=== PATIENT | female | born 1980 | race African-American/Black ===

== ENCOUNTER 2016-08-31 07:30 | Inpatient (IN) ==
[2016-08-31 14:34] LABS: Basophils % 0.4 % (0.0-0.8); Eosinophils # 0.2 10*3/uL (0.0-0.87); Eosinophils % 1.9 % (0.00-10.9); Hemoglobin 7.4 GM/DL (12.0-16.0); Immature Granulocytes % 0.4 %; Immature Granulocytes Absolute 0.04 #; Lymphocytes # 2.8 10*3/uL (1.4-4.0); Lymphocytes % 30.4 % (21.3-54.2); Mean Corpuscular HGB Conc 33.6 GM/DL (32-36); Mean Corpuscular Hemoglobin 24 PG (27-34); Mean Corpuscular Volume 70.5 FL (87-102); Mean Platelet Volume 10.6 FL (9.6-12.0); Monocytes # 0.6 10*3/uL (0.11-0.8); Monocytes % 6.8 % (1.7-12.7); NRBC # 0.03 10*3/uL; Neutrophils # 5.5 10*3/uL (1.4-7.4); Neutrophils % 60.1 % (38.7-73.9); Platelet Count 533 T/CUMM (130-400); Red Blood Count 3.12 MC/CUMM (3.8-5.5); Red Cell Distribution Width 14.5 % (9.3-17.3); White Blood Count 9.1 T/CUMM (4-12)
[2016-08-31 14:59] LABS: Apearance,Urine Slightly Hazy (Clear); Bacteria,Urine Many /HPF (Few); Bilirubin,Urine Negative (Negative); Blood, Urine Negative (Negative); Glucose,Urine (UA) Negative (Negative); Ketones,Urine Negative (Negative); Mucus,Urine Occasional /LPF (Occasional); Nitrite,Urine Negative (Negative); Protein,Urine Negative; RBC,Urine 2 /HPF (0-4); Squamous Epithelial Cell,Urine Occasional /HPF (0-10); Urine Color Yellow (Yellow); Urine Specific Gravity 1.011 (1.001-1.035); WBC,Urine 10 /HPF (0-6)
--- NOTE | 2016-08-31 15:03 | EKG Report ---
Stationary ECG Study [facility] Test Date: 08/31/2016 3:02:49 PM Pat Name: OPAL HATCH Department: Room: Gender: F Marketing Account Manager: ALFONSO 09[birth year]-16 : 1980 Requested by: Lucio Vasquez Order Number: [id number] Reading MD: MARGAUX DIAL Intervals [place] Rate: 67 P: 78 HI: 163 QRS: 82 QRSD: 84 T: 60 QT: 374 QTc: 390 Interpretive Statements SINUS RHYTHM Electronically Signed On 09-02-16 09:13:52 CASINO SLOT SUPERVISOR by MARGAUX DIAL [email or web address]
[2016-08-31 15:09] LABS: Albumin 4.3 G/DL (3.4-5.0); Bilirubin,Total 1.1 MG/DL (0.2-1.0); Calcium 8.9 MG/DL (8.5-10.1); Osmolality,Calculated 282.8 MOS/KG (273-304); Potassium 3.8 MMOL/L (3.5-5.1); Total Protein 7.7 G/DL (6.4-8.3)
--- NOTE | 2016-08-31 15:14 | XRay Report ---
XR chest 2V Date: 08/31/2016 2:16 PM History: Respiratory preoperative evaluation Comparison: 09/20/2014 Technique: PA and lateral chest Findings: The heart is normal in size. The lungs are clear with unremarkable mediastinum. No acute osseous findings. Impression: No acute cardiopulmonary pathology identified. PROCEDURE INTERPRETED AT [facility] DEPARTMENT OF RADIOLOGY Final Report Signed by: Dr. Adriana Holden
[2016-09-02] MEDS ORDERED: VANCOMYCIN INJ 1,000 MG in SODIUM CHLORIDE 0.9% 250 ML IV ONE (06:00)
[2016-09-02] MEDS: LACTATED RINGERS 1,000 ML IV SCH ×2 (06:36→09:00)
[2016-09-02] MEDS ORDERED: SODIUM CHLORIDE 0.9% 100 ML IV ONE (06:39)
[2016-09-02] MEDS ORDERED: ceFAZolin 1,000 MG VIAL ONE (06:39)
[2016-09-02] MEDS ORDERED: VANCOMYCIN 1,000 MG VIAL ONE (06:39)
[2016-09-02 06:53] LABS: Hematocrit 31.4 VOL% (35.7-47.0); Hemoglobin 10.3 GM/DL (12.0-16.0)
[2016-09-02] MEDS ORDERED: ROCURONIUM 100 MG/10 ML VIAL IV ONE (07:10)
[2016-09-02] MEDS ORDERED: PROPOFOL 200 MG/20 ML VIAL IV ONE (07:10)
[2016-09-02] MEDS ORDERED: ONDANSETRON 4 MG/2 ML VIAL ONE (07:10)
[2016-09-02] MEDS ORDERED: LIDOCAINE 2% 5 ML VIAL ONE (07:10)
[2016-09-02] MEDS ORDERED: BISACODYL 10 MG SUPP RECTAL PRN (07:12)
[2016-09-02] MEDS ORDERED: LACTULOSE 20 GM/30 ML UDCUP PO PRN (07:12)
[2016-09-02] MEDS ORDERED: TEMAZEPAM 7.5 MG CAPSULE PO PRN (07:12)
[2016-09-02] MEDS ORDERED: HYDROmorphone 2 MG/1 ML VIAL IV PRN (07:12)
[2016-09-02] MEDS ORDERED: diphenhydrAMINE CAP 25 MG CAPSULE PO PRN (07:12)
[2016-09-02] MEDS ORDERED: MAGNESIUM HYDROXIDE SUSP 30 ML UDCUP PO PRN (07:12)
[2016-09-02] MEDS ORDERED: PROMETHAZINE 25 MG/1 ML VIAL IM PRN (07:12)
--- NOTE | 2016-09-02 07:12 | History and Physical Update ---
History and Physical Update - History and Physical H&P was reviewed, the patient examined and there: are no changes in the patients condition since last H&P was completed.
[2016-09-02] MEDS ORDERED: ROPIVACAINE 0.5% 30 ML VIAL ONE (08:56)
[2016-09-02] MEDS ORDERED: DEFERASIROX PO SCH (09:00)
--- NOTE | 2016-09-02 09:10 | XRay Report ---
XR hip OR LT Indication: Left total hip. Left hip one view: Left MATT is now present and in anatomic alignment. No periprosthetic fracture shown. Surgical drains overlie the operative site. Impression: Left MATT. Normal alignment. PROCEDURE INTERPRETED AT [facility] DEPARTMENT OF RADIOLOGY Final Report Signed by: Rubin Bhagat M.D.
[2016-09-02 09:16] LABS: Apearance,Urine CLEAR (Clear); Bacteria,Urine Few /HPF (Few); Bilirubin,Urine Negative (Negative); Blood, Urine Negative (Negative); Glucose,Urine (UA) Negative (Negative); Ketones,Urine Negative (Negative); Mucus,Urine Occasional /LPF (Occasional); Nitrite,Urine Negative (Negative); Protein,Urine Negative; Squamous Epithelial Cell,Urine Occasional /HPF (0-10); Urine Color Yellow (Yellow); Urine Specific Gravity 1.011 (1.001-1.035); WBC,Urine 1 /HPF (0-6)
--- NOTE | 2016-09-02 09:26 | Anesthesia ---
Anesthesia Post OP - Post Ansesthetic Evaluation Patient seen in post op: Yes Resp: within normal limits CV: within normal limits Mental: within normal limits Temp: within normal limits Ccij-To-Dnjtwpern: within normal limits Nausea and Vomiting: within normal limits Pain: within normal limits
[2016-09-02] MEDS ORDERED: ACETAMINOPHEN 1,000 MG/100 ML VIAL IV ONE (09:29)
[2016-09-02] MEDS ORDERED: fentaNYL 100 MCG/2 ML VIAL ONE (09:29)
[2016-09-02] MEDS ORDERED: MIDAZOLAM 2 MG/2 ML VIAL ONE (09:29)
[2016-09-02] MEDS ORDERED: SEVOFLURANE 1 UNIT/15 MINUTE INH ONE (09:29)
[2016-09-02] MEDS ORDERED: MORPHINE 10 MG/10 ML VIAL ONE (09:29)
[2016-09-02] MEDS ORDERED: LACTATED RINGERS 1,000 ML IV ONE (09:29)
[2016-09-02] MEDS: ONDANSETRON 4 MG/2 ML VIAL IV PRN ×2 (12:19→16:21)
--- NOTE | 2016-09-02 15:17 | Operative Note ---
DATE: 09/02/2016 PREOPERATIVE DIAGNOSES: 1. OSTEOARTHRITIS, LEFT HIP. 2. SICKLE CELL ANEMIA. POSTOPERATIVE DIAGNOSIS: SAME. OPERATIVE PROCEDURE: Left total hip (SROM). SURGEON: Lucio Vasquez Jr., MD HOMICIDE SQUAD SERGEANT: Dr. Ariza. ANESTHESIA: Spinal converted to general. INDICATIONS: A 36-year-old black female with history of sickle cell. She has developed severe aceta bulum protrusio bilateral with significant degenerative changes. She presents today for elective tot al hip. We discussed previously the associated risks, benefits, and alternatives, and she is comfort able with her decision. OPERATIVE PROCEDURE: The patient was taken to the operating room and under general anesthetic, posi tioned in the right lateral decubitus position. The left hip and lower extremity prepped and draped in the usual sterile manner. She received Vancomycin and Ancef preoperatively. A curvilinear incisio n was made over the posterolateral aspect of the left hip. Sharp dissection carried down through the skin and subcutaneous tissue. The IT band was split and the gluteus in line with its fiber. The hi p was internally rotated and the short rotators and capsule were reflected off of the back of the pr oximal femur. The acetabulum was exposed, capsule preserved for later repair. The head was dislocate d and resected. The acetabulum was noted to have significant protrusio so we carefully reamed up to a 47 and a 48 cup press fit in place. The floor of the acetabulum was cleaned of any soft tissue gregorio ris and milling of the femoral head and neck region was used to pack bone graft behind the cup. The cup was inserted and secured with two screws and a 10-degree all polyethylene liner placed. The SROM component was then used for the proximal femur after exposure, ultimately selecting a size 9 with a 14B small collar. The femoral component was a 14 x 9 30 standard neck. The trials were removed. T he permanent implants placed and again a 0 head was trialed and selected. This did add a little bit of length to the limb, but this had been discussed preoperatively. She had shortened with the prot rusio. The hip was stable. The wound was irrigated. Intraoperative film confirmed satisfactory po sition. All wounds were irrigated and then closed in a standard fashion over two 1/8-inch Hemovac d rains. The capsule and IT band layers were closed with #1 Vicryl, the subcutaneous layer with 2-0 V icryl, and josh for skin. Sterile dressing applied. She was rolled supine. Abduction pillow pl aced and taken to the recovery room in stable condition.
[2016-09-02] MEDS: DOCUSATE SODIUM 100 MG CAPSULE PO SCH ×2 (16:18→21:46)
[2016-09-02] MEDS: HYDROmorphone PCA 30 MG/30 ML SYRINGE IV SCH (17:14)
--- NOTE | 2016-09-02 17:31 | Orthopedic Progress Note ---
Orthopedics - Subjective Interval history: Comfortable neurovascular intact discussed up in a.m. Exam - Constitutional Vitals: Period Temp Pulse Resp BP Sys/Hannah Pulse Ox Last 24 Hr 97.2 F-99.0 F 57-85 16-19 74-107/37-65 98-100 Results - Labs CBC & BMP: 09/02/16 06:44 08/31/16 14:24
[2016-09-02] MEDS: FONDAPARINUX 2.5 MG/0.5 ML SYRINGE SUBCUT SCH (18:21)
[2016-09-03 05:25] LABS: Basophils % 0.2 % (0.0-0.8); Eosinophils # 0.1 10*3/uL (0.0-0.87); Eosinophils % 0.5 % (0.00-10.9); Hematocrit 23.8 VOL% (35.7-47.0); Immature Granulocytes % 0.5 %; Immature Granulocytes Absolute 0.06 #; Lymphocytes # 1.3 10*3/uL (1.4-4.0); Lymphocytes % 11.5 % (21.3-54.2); Mean Corpuscular HGB Conc 33.6 GM/DL (32-36); Mean Corpuscular Hemoglobin 25 PG (27-34); Mean Platelet Volume 11.4 FL (9.6-12.0); Monocytes # 1.3 10*3/uL (0.11-0.8); Monocytes % 11.5 % (1.7-12.7); NRBC # 0.03 10*3/uL; Neutrophils # 8.7 10*3/uL (1.4-7.4); Neutrophils % 75.8 % (38.7-73.9); Platelet Count 387 T/CUMM (130-400); Red Blood Count 3.26 MC/CUMM (3.8-5.5); Red Cell Distribution Width 16.9 % (9.3-17.3); White Blood Count 11.4 T/CUMM (4-12)
[2016-09-03 05:57] LABS: Calcium 8.3 MG/DL (8.5-10.1); Osmolality,Calculated 275.4 MOS/KG (273-304); Potassium 3.9 MMOL/L (3.5-5.1)
--- NOTE | 2016-09-03 07:57 | Hematology Consult ---
Assessment and Plan (1) Sickle cell anemia Status: Acute Current Visit: Yes (2) UTI (urinary tract infection) Status: Acute Current Visit: Yes (3) Fever Status: Acute Current Visit: Yes (4) Osteonecrosis Status: Acute Current Visit: Yes (5) Hip joint replacement status Status: Acute Current Visit: Yes History of Present Illness - Consult Narrative History of present illness: Ms. Menjivar is a 36 year old female with sickle cell anemia who is now status post total left hip replacement due to osteonecrosis. She tolerated her surgery well yesterday. Her urine cultures are growing Escherichia coli and she did spike a temp this morning above 102 Fahrenheit. She has received 3 doses of cefazolin for perioperative prophylaxis I think it would be mackay to give her 3 days of Cipro. Her hemoglobin this morning is at 8. She is not complaining of any signs or symptoms of a sickle cell crisis so I do not see her needing a transfusion at this time. She'll begin ambulating today per orthopedics instructions. I will follow-up her hemoglobin tomorrow morning. Please call him if there are any questions. CC: Lucio Vasquez Jr., MD - Home Medications and Allergies Home Medications: Home Medications Medication Instructions Recorded Confirmed Type Deferasirox [Jadenu] 540 mg PO DAILY 05/28/16 09/02/16 History HYDROcodone/ACETAMIN 7.5-325 1 tablet PO Q6H PRN 08/31/16 09/02/16 History [[place] 7.5-325] Allergies/Adverse Reactions: Allergies Allergy/AdvReac Type Severity Reaction Status Date / Time No Known Allergies Allergy Verified 08/31/16 14:32 Medical,Surgical,& Family Hx - Medical History Neurology: History of: Migraine (occasionally) No history of: Seizures Respiratory: History of: Respiratory Problems (FLU VAC-NO; PNEU VAC- NO) Gastrointestinal: History of: GI Problems (IRON OVERLOAD) Musculoskeletal: History of: Musculoskeletal Problems (LEFT HIP OA) Hematology: History of: Sickle Cell Disease (NO CRISIS RECENTLY.) Reproductive: History of: Ectopic Other: History of: Miscellaneous Medical Problems (DR SOLIS TO CLEAR FOR SURGERY.) - Surgical History Reproductive Surgeries: Surgical HX of;: Section (X5), Gynecologic Surgery (OOPHORECTOMY) Orthopedic Surgeries: Surgical HX of;: Total Hip Replacement (Lt 08/2016) - Social History Smoking Status: Never smoker Frequency of Alcohol Use: Occasionally Type of Drug Use: None 12 point system: reviewed and no additional remarkable complaints except as stated Exam - Constitutional Vitals: Period Temp Pulse Resp BP Sys/Hannah Pulse Ox Last 24 Hr 97.2 F-102.1 F 57-108 16-19 74-99/37-65 98-100 General appearance: normal weight, no acute distress - Head Head Exam: Present: normocephalic, atraumatic - Eye Eye Exam: Present: EOMI Pupils: Present: PERRL - ENT ENT exam: Present: normal exam, normal oropharynx - Neck Neck exam: Absent: lymphadenopathy, thyromegaly - Respiratory Respiratory exam: Present: CTAB. Absent: wheezes - Cardiovascular Cardiovascular exam: Present: tachycardia. Absent: JVD - GI/Abdominal GI/Abdominal exam: Present: soft. Absent: ascites, distended, mass - Neurological Exam Neurological exam: Present: alert, oriented X3 - Psychiatric Psychiatric exam: Present: normal affect, normal mood Results - Labs CBC & BMP: 09/03/16 04:38 09/03/16 04:38 Lab Results: I have reviewed the past 24 hour labs
[2016-09-03] MEDS: HYDROmorphone PCA 30 MG/30 ML SYRINGE IV SCH (08:17)
[2016-09-03] MEDS: DOCUSATE SODIUM 100 MG CAPSULE PO SCH ×2 (09:30→21:17)
[2016-09-03] MEDS: CIPROFLOXACIN 500 MG TABLET PO SCH ×2 (09:30→21:17)
--- NOTE | 2016-09-03 11:45 | Pathology Report from [facility] ---
ACCESSION # : [id number] PATIENT NAME : Opal Menjivar ORDERING DR : NATE HEAD JR, MD CLINICAL HX: Sickle cell diseasae w/osteoarthritis, LT hip POST-OP DX: Same SPECIMEN INFO: LT hip bone & tissue GROSS DESCRIPTION: Received in formalin labeled "OPAL MENJIVAR" is a femoral head measuring 4.3 x 3/8 x 3.3 cm. The articular surface is focally degenerative with no subchondral eburnation seen. The cut surface is smooth with no softening appreciated. Conservation Of Resources Commissioner sections are submitted in one cassette following decalcification. DIAGNOSIS FOR OPAL MENJIVAR: LEFT HIP BONE AND TISSUE: Trabecular bone, hemorrhagic marrow, and fibrocartilagenous tissue. No evidence of malignancy. SERVICE DATE: 09/02/2016 REPORT DATE: 09/03/2016 PATHOLOGIST: Loli Paul III, M.D. MTDD
[2016-09-03] MEDS: FONDAPARINUX 2.5 MG/0.5 ML SYRINGE SUBCUT SCH (17:53)
[2016-09-03] MEDS: ACETAMINOPHEN 325 MG TABLET PO PRN (18:05)
[2016-09-04 05:44] LABS: Basophils % 0.2 % (0.0-0.8); Eosinophils # 0.1 10*3/uL (0.0-0.87); Eosinophils % 0.4 % (0.00-10.9); Hematocrit 23.5 VOL% (35.7-47.0); Hemoglobin 7.9 GM/DL (12.0-16.0); Immature Granulocytes Absolute 0.19 #; Lymphocytes # 0.9 10*3/uL (1.4-4.0); Lymphocytes % 4.4 % (21.3-54.2); Mean Corpuscular HGB Conc 33.6 GM/DL (32-36); Mean Corpuscular Hemoglobin 24 PG (27-34); Mean Corpuscular Volume 72.5 FL (87-102); Monocytes # 2.2 10*3/uL (0.11-0.8); Monocytes % 11.3 % (1.7-12.7); NRBC # 0.02 10*3/uL; Neutrophils # 16.4 10*3/uL (1.4-7.4); Neutrophils % 82.7 % (38.7-73.9); Platelet Count 352 T/CUMM (130-400); Red Blood Count 3.24 MC/CUMM (3.8-5.5); Red Cell Distribution Width 16.7 % (9.3-17.3); White Blood Count 19.8 T/CUMM (4-12)
[2016-09-04] MEDS: ACETAMINOPHEN 325 MG TABLET PO PRN ×3 (05:44→20:51)
[2016-09-04 06:13] LABS: Lymphocytes 12 % (20-55); Segmented Neutrophils 77 % (50-85); Total Cells Counted 100
[2016-09-04 06:14] LABS: Ovalocytes Few; Platelet Estimate Normal; Target Cells Few
--- NOTE | 2016-09-04 07:18 | Orthopedic Progress Note ---
Orthopedics - Subjective Interval history: Comfortable postop day 2 dressing dry mobilizing with PT to touchdown 25% weightbearing likely home early next week. IV and BUREAU CHIEF Exam - Constitutional Vitals: Period Temp Pulse Resp BP Sys/Hannah Pulse Ox Last 24 Hr 99.7 F-102.9 F 104-120 16-18 91-112/51-66 97-991 Results - Labs CBC & BMP: 09/04/16 05:26 09/03/16 04:38
--- NOTE | 2016-09-04 08:40 | Hematology Progress Note ---
Assessment and Plan (1) Sickle cell anemia Status: Acute Current Visit: Yes (2) UTI (urinary tract infection) Status: Acute Current Visit: Yes (3) Fever Status: Acute Current Visit: Yes (4) Osteonecrosis Status: Acute Current Visit: Yes (5) Hip joint replacement status Status: Acute Current Visit: Yes Hematology Subjective PN Interval history: Mrs. Menjivar continued to have intermittent fever spikes throughout the day. I started her on Cipro yesterday for the Escherichia coli growing in her urine. This will be completed on Wednesday. She feels well with no complaints other than anticipated left hip pain. She has now ambulating on the hip. Her Boyd catheter has been removed. Her hemoglobin today is 7.9 which is at her baseline. I will hold off on a transfusion for now. She has no complaints of sickle cell pain crisis. She remains in good spirits. I will have my partner over the weekend check in on her lab work to see if a transfusion is indicated. I would think if her hemoglobin gets below 7, she would likely benefit from 2 units of packed red cells. Exam - Constitutional Vitals: Period Temp Pulse Resp BP Sys/Hannah Pulse Ox Last 24 Hr 99.0 F-102.9 F 104-120 16-18 100-112/58-66 97-991 Results - Labs CBC & BMP: 09/04/16 05:26 09/03/16 04:38
[2016-09-04] MEDS: CIPROFLOXACIN 500 MG TABLET PO SCH ×2 (09:55→20:50)
[2016-09-04] MEDS: DOCUSATE SODIUM 100 MG CAPSULE PO SCH ×2 (09:55→20:51)
[2016-09-04] MEDS: FONDAPARINUX 2.5 MG/0.5 ML SYRINGE SUBCUT SCH (18:07)
[2016-09-05 06:01] LABS: Basophils % 0.2 % (0.0-0.8); Eosinophils # 0.4 10*3/uL (0.0-0.87); Hematocrit 25.3 VOL% (35.7-47.0); Hemoglobin 8.3 GM/DL (12.0-16.0); Immature Granulocytes % 0.6 %; Immature Granulocytes Absolute 0.12 #; Lymphocytes # 0.9 10*3/uL (1.4-4.0); Lymphocytes % 4.7 % (21.3-54.2); Mean Corpuscular HGB Conc 32.8 GM/DL (32-36); Mean Corpuscular Hemoglobin 24 PG (27-34); Mean Platelet Volume 11.7 FL (9.6-12.0); Monocytes # 2.2 10*3/uL (0.11-0.8); Monocytes % 11.7 % (1.7-12.7); NRBC # 0.02 10*3/uL; Neutrophils # 15.1 10*3/uL (1.4-7.4); Neutrophils % 80.8 % (38.7-73.9); Platelet Count 384 T/CUMM (130-400); Red Blood Count 3.42 MC/CUMM (3.8-5.5); Red Cell Distribution Width 17.1 % (9.3-17.3); White Blood Count 18.7 T/CUMM (4-12)
[2016-09-05] MEDS ORDERED: oxyCODONE IR 5 MG TABLET PO PRN (07:18)
--- NOTE | 2016-09-05 07:20 | Orthopedic Progress Note ---
Assessment and Plan (1) Hip joint replacement status Status: Acute Assessment and plan: Out of bed with PT 25% partial weightbearing with hip precautions DVT prophylaxis Discharge Wednesday Current Visit: Yes Qualifiers: Laterality: left Qualified Code(s): Z96.642 - Presence of left artificial hip joint Orthopedics - Subjective Interval history: Patient still complains of left hip pain. She was able to ambulate in the hallway with therapy yesterday. On exam her dressing is clean and dry, she can wiggle her toes she is sensate foot. Exam - Constitutional Vitals: Period Temp Pulse Resp BP Sys/Hannah Pulse Ox Last 24 Hr 99.0 F-101.8 F 100-127 18-20 99-117/58-73 97-99 Results - Labs CBC & BMP: 09/05/16 05:13 09/03/16 04:38
[2016-09-05 07:59] LABS: Acanthocytes Few; Band Neutrophils 4 % (0-10); Hypochromasia 2+; Lymphocytes 12 % (20-55); Macrocytosis 1+; Platelet Estimate Adequate; Polychromasia Slight; Segmented Neutrophils 80 % (50-85); Target Cells Slight; Total Cells Counted 100
[2016-09-05] MEDS: DOCUSATE SODIUM 100 MG CAPSULE PO SCH ×2 (08:22→20:22)
[2016-09-05] MEDS: CIPROFLOXACIN 500 MG TABLET PO SCH ×2 (08:23→20:22)
[2016-09-05] MEDS: ACETAMINOPHEN 325 MG TABLET PO PRN ×2 (15:26→20:22)
[2016-09-05 16:20] LABS: Apearance,Urine Slightly Hazy (Clear); Bacteria,Urine Occasional /HPF (Few); Bilirubin,Urine Negative (Negative); Blood, Urine Negative (Negative); Glucose,Urine (UA) Negative (Negative); Ketones,Urine Negative (Negative); Mucus,Urine Occasional /LPF (Occasional); Nitrite,Urine Negative (Negative); Protein,Urine Negative; RBC,Urine 1 /HPF (0-4); Squamous Epithelial Cell,Urine Occasional /HPF (0-10); Urine Color Yellow (Yellow); WBC,Urine 2 /HPF (0-6)
--- NOTE | 2016-09-05 17:20 | XRay Report ---
Exam: XR chest 1V portable Indication: Fever Comparison study: August 31, 2016 Findings: The heart, mediastinum and bony structures are stable from prior. Minimal increase in perihilar interstitial opacities when compared to prior which may be related to atelectasis and decreased inspiratory effort. There is no focal consolidation, pneumothorax or pleural effusion identified. Impression: No acute cardiopulmonary process for expiratory chest. PROCEDURE INTERPRETED AT [facility] DEPARTMENT OF RADIOLOGY Final Report Signed by: Brett Sprague
[2016-09-05] MEDS: FONDAPARINUX 2.5 MG/0.5 ML SYRINGE SUBCUT SCH (17:43)
[2016-09-06 05:21] LABS: Basophils # 0.1 10*3/uL (0.0-0.2); Basophils % 0.3 % (0.0-0.8); Eosinophils # 0.7 10*3/uL (0.0-0.87); Eosinophils % 4.5 % (0.00-10.9); Hematocrit 23.5 VOL% (35.7-47.0); Hemoglobin 7.7 GM/DL (12.0-16.0); Immature Granulocytes % 0.6 %; Immature Granulocytes Absolute 0.09 #; Lymphocytes # 1.3 10*3/uL (1.4-4.0); Lymphocytes % 8.5 % (21.3-54.2); Mean Corpuscular HGB Conc 32.8 GM/DL (32-36); Mean Corpuscular Hemoglobin 24 PG (27-34); Mean Platelet Volume 10.8 FL (9.6-12.0); Monocytes # 1.7 10*3/uL (0.11-0.8); Monocytes % 10.8 % (1.7-12.7); Neutrophils # 11.7 10*3/uL (1.4-7.4); Neutrophils % 75.3 % (38.7-73.9); Platelet Count 423 T/CUMM (130-400); Red Blood Count 3.22 MC/CUMM (3.8-5.5); Red Cell Distribution Width 17.4 % (9.3-17.3); White Blood Count 15.6 T/CUMM (4-12)
--- NOTE | 2016-09-06 08:34 | Orthopedic Progress Note ---
Assessment and Plan (1) Hip joint replacement status Status: Acute Assessment and plan: Out of bed with PT 25% partial weightbearing with hip precautions DVT prophylaxis Discharge home tomorrow Current Visit: Yes Qualifiers: Laterality: left Qualified Code(s): Z96.642 - Presence of left artificial hip joint Orthopedics - Subjective Interval history: Patient has no new complaints this morning, her pain is better controlled with the when necessary oxycodone. She is already been ambulating with therapy this morning. On exam her dressings clean and dry, she is neurovascularly intact. H&H is 7. 723.5 this morning Exam - Constitutional Vitals: Period Temp Pulse Resp BP Sys/Hannah Pulse Ox Last 24 Hr 97.8 F-100.6 F 94-128 18-18 92-126/42-76 97-99 Results - Labs CBC & BMP: 09/06/16 04:57 09/03/16 04:38
[2016-09-06] MEDS: DOCUSATE SODIUM 100 MG CAPSULE PO SCH ×2 (08:36→20:07)
[2016-09-06] MEDS: FONDAPARINUX 2.5 MG/0.5 ML SYRINGE SUBCUT SCH (18:21)
[2016-09-07 04:00] LABS: Basophils # 0.1 10*3/uL (0.0-0.2); Basophils % 0.4 % (0.0-0.8); Eosinophils # 0.8 10*3/uL (0.0-0.87); Eosinophils % 5.5 % (0.00-10.9); Hematocrit 22.2 VOL% (35.7-47.0); Hemoglobin 7.4 GM/DL (12.0-16.0); Immature Granulocytes % 0.5 %; Immature Granulocytes Absolute 0.07 #; Lymphocytes # 2.1 10*3/uL (1.4-4.0); Lymphocytes % 15.1 % (21.3-54.2); Mean Corpuscular HGB Conc 33.3 GM/DL (32-36); Mean Corpuscular Hemoglobin 24 PG (27-34); Mean Corpuscular Volume 71.6 FL (87-102); Mean Platelet Volume 10.2 FL (9.6-12.0); Monocytes # 1.5 10*3/uL (0.11-0.8); Monocytes % 10.4 % (1.7-12.7); Neutrophils # 9.5 10*3/uL (1.4-7.4); Neutrophils % 68.1 % (38.7-73.9); Platelet Count 472 T/CUMM (130-400); Red Cell Distribution Width 18.1 % (9.3-17.3); White Blood Count 13.9 T/CUMM (4-12)
--- NOTE | 2016-09-07 07:58 | Orthopedic Progress Note ---
Orthopedics - Subjective Interval history: Pain control fair mobilizing down the [place] dressings dry instructed likely home today after PT with home health Exam - Constitutional Vitals: Period Temp Pulse Resp BP Sys/Hannah Pulse Ox Last 24 Hr 97.8 F-99.4 F 94-116 12-20 99-113/56-64 95-100 Results - Labs CBC & BMP: 09/07/16 03:48 09/03/16 04:38
--- NOTE | 2016-09-07 08:00 | Discharge Summary ---
Hospital Course - Hospital Course Hospital Course: Admitted for elective left total hip uncomplicated course discharged home Diagnosis - Discharge Diagnosis (1) Osteoarthritis of left hip Status: Acute Discharge Plan - Discharge Data Disposition: Home Health Service Condition at Discharge: Stable Discharge Diet: advance to your usual diet Activity: ambulate only with your walker (25% weightbearing on the left with hip precautions) Hygiene: may shower, keep area(s) dry Weight Bearing at Discharge: partial weight bearing Driving: not until seen by doctor - Discharge Medications New HYDROcodone/ACETAMIN 7.5-325 [[place] 7.5-325] 1 tablet PO Q4H PRN #30 tablet PRN Reason: Pain Moderate (4-7) Continue Deferasirox [Jadenu] 540 mg PO DAILY HYDROcodone/ACETAMIN 7.5-325 [[place] 7.5-325] 1 tablet PO Q6H PRN PRN Reason: Pain - Follow Up or Referral - Forms/Instructions Additional Discharge Instructions: Discharge to home continue home medications [place] when necessary aspirin once a day and routine diet weightbearing at 25% with hip precautions on the left. Vansant out and wound Steri-Stripped September 16. Follow-up 4 weeks Exam - Constitutional Vitals: Period Temp Pulse Resp BP Sys/Hannah Pulse Ox Last 24 Hr 97.8 F-99.4 F 94-116 12-20 99-113/56-64 95-100 Discharge Results Procedures and tests throughout hospitalization: Pending Orders 09/05/16 15:23 Blood Culture Stat Labs on day of discharge: Labs from last 24 hours 09/07/16 03:48 WBC 13.9 H RBC 3.10 L Hgb 7.4 L Hct 22.2 L MCV 71.6 L MCH 24 L MCHC 33.3 RDW 18.1 H Plt Count 472 H MPV 10.2 Neut % (Auto) 68.1 Lymph % (Auto) 15.1 L [place] % (Auto) 10.4 Eos % (Auto) 5.5 Baso % (Auto) 0.4 Neut # (Auto) 9.5 H Lymph # (Auto) 2.1 [place] # (Auto) 1.5 H Eos # (Auto) 0.8 Baso # (Auto) 0.1 Immature Gran % 0.5 Nucleated RBC % 0.0 Immature Gran # 0.07 Nucleated RBCs # 0.00 Preliminary micro results at discharge 09/05/16 15:23 Blood Culture - Preliminary Blood No growth at 1 day 09/05/16 15:23 Blood Culture - Preliminary Blood No growth at 1 day DS: Provider Date of admission: 09/02/16 06:11 Primary care physician: . No PCP Attending physician on admission: Lucio Vasquez Jr., MD Consults: 09/02/16 07:13 Consult to Case Mgmt/Social Srvs [CONS] Routine Reason for Case Mgmt/Social Srvs: Rehab Home Health Equipment Consult Comment: Bedside Commode, f/home use; Pt is 5ft 2.5in, 126 lbs; Consult to Occupational Therapy [CONS] Routine Reason for Occupational Therapy: Evaluate and Treat Consult Comment: ADL's Consult to Physical Therapy [CONS] Routine Reason for Physical Therapy: Evaluate and Treat Gait Training 09/02/16 07:15 Consult to Physician [CONS] Routine Comment: Consulting Provider: Abe Haile Consulting Provider Notified: Yes When should Consulting Provider be notified: Now Person Notified: gracie desai Date Notified: 09/02/16 Time Notified: 10:37 09/02/16 10:27 Consult to Pharmacy [CONS] Routine Reason for Pharmacy Consult: Adjust Meds Renal Funct 09/02/16 15:13 Consult to Physical Therapy [CONS] Routine Reason for Physical Therapy: Other Consult Comment: Ordering a Standard Walker f/home use for home rehab Discharging clinician: Lucio Vasquez Jr., MD
[2016-09-07] MEDS: DOCUSATE SODIUM 100 MG CAPSULE PO SCH (09:23)
[2016-09-07] MEDS: FONDAPARINUX 2.5 MG/0.5 ML SYRINGE SUBCUT SCH (09:23)
--- NOTE | 2016-09-07 10:03 | Ultrasound Report ---
Venous Doppler ultrasound left lower extremity Indication: Pain and tightness Comparison: None available Findings: No evidence of echogenic, noncompressible thrombus seen in the visualized veins of the extremities. Color Doppler venous waveform pattern is within normal limits. Impression: No evidence of deep venous thrombosis. Ultrasound images stored and captured. PROCEDURE INTERPRETED AT [facility] DEPARTMENT OF RADIOLOGY Final Report Signed by: Dr. Caesar Hughes
[2016-09-07 12:36] VITALS: BP 97/59
== END 2016-09-07 13:50 | disposition home health service (06) | DRG 470 ==
LOC: N.SDSINP 09-02 06:11 → N.3E 09-02 09:52
PROVIDERS: ADMIT Orthopaedic Surgery; ATTEND Orthopaedic Surgery

== ENCOUNTER 2020-12-11 01:16 | Inpatient (IN) ==
[2020-12-11] MEDS ORDERED: ACETAMINOPHEN 500 MG TABLET PO STA (01:24)
[2020-12-11] MEDS ORDERED: ACETAMINOPHEN 500 MG TABLET ONE (01:25)
[2020-12-11] MEDS ORDERED: ONDANSETRON 4 MG/2 ML VIAL IV STA (02:32)
[2020-12-11] MEDS ORDERED: SODIUM CHLORIDE 0.9% 1,000 ML IV STA (02:32)
[2020-12-11] MEDS ORDERED: HYDROmorphone 2 MG/1 ML VIAL IV STA (02:32)
[2020-12-11 03:21] LABS: Basophils # 0.1 10*3/uL (0.0-0.2); Basophils % 0.2 % (0.0-0.8); Eosinophils # 0.1 10*3/uL (0.0-0.87); Eosinophils % 0.2 % (0.00-10.9); Hematocrit 19.2 VOL% (35.7-47.0); Hemoglobin 6.5 GM/DL (12.0-16.0); Immature Granulocytes % 0.7 %; Immature Granulocytes Absolute 0.16 #; Lymphocytes # 0.6 10*3/uL (1.4-4.0); Lymphocytes % 2.8 % (21.3-54.2); Mean Corpuscular HGB Conc 33.9 GM/DL (32-36); Mean Corpuscular Volume 69.1 FL (87-102); Mean Platelet Volume 10.2 FL (9.6-12.0); Monocytes % 1.1 % (1.7-12.7); NRBC # 0.04 10*3/uL; Platelet Count 487 T/CUMM (130-400); Red Blood Count 2.78 MC/CUMM (3.8-5.5); Red Cell Distribution Width 14.3 % (9.3-17.3); White Blood Count 21.6 T/CUMM (4-12)
[2020-12-11 03:31] LABS: Bilirubin,Urine Negative (Negative); Blood, Urine Small mg/dL (Negative); Glucose,Urine (UA) Negative (Negative); Ketones,Urine Negative (Negative); Mucus,Urine Occasional /LPF (Occasional); Nitrite,Urine Negative (Negative); Protein,Urine 30 MG/DL; RBC,Urine 7 /HPF (0-4); Renal Epithelial Cells,Urine Occasional /HPF (<1); Squamous Epithelial Cell,Urine Occasional /HPF (0-10); Urine Appearance Slightly Hazy (Clear); Urine Color Yellow (Yellow)
[2020-12-11 03:38] LABS: Albumin 3.9 G/DL (3.4-5.0); Bilirubin,Total 1.5 MG/DL (0.2-1.0); Calcium 8.4 MG/DL (8.5-10.1); Osmolality,Calculated 268.1 MOS/KG (273-304); Potassium 3.1 MMOL/L (3.5-5.1); Total Protein 7.5 G/DL (6.4-8.2)
[2020-12-11] MEDS ORDERED: cefTRIAXone 1,000 MG in SODIUM CHLORIDE 0.9% 100 ML IV STA (03:41)
[2020-12-11 04:11] LABS: Band Neutrophils 1 % (0-10); Eosinophils 1 % (0-10); Hypochromasia 2+; Lymphocytes 2 % (20-55); Platelet Estimate Adequate; Segmented Neutrophils 94 % (50-85); Total Cells Counted 100
[2020-12-11] MEDS ORDERED: ACETAMINOPHEN 500 MG TABLET PO PRN (05:35)
[2020-12-11] MEDS ORDERED: MORPHINE 4 MG/1 ML VIAL IV PRN (05:37)
[2020-12-11] MEDS ORDERED: SODIUM CHLORIDE 0.9% 1,000 ML IV PRN (09:17)
[2020-12-11] MEDS: POTASSIUM CHLORIDE INJ 30 MEQ in SODIUM CHLORIDE 0.9% 1,000 ML IV SCH ×3 (09:37→18:57)
[2020-12-11] MEDS ORDERED: PNEUMOCOCCAL VACCINE (13 VALENT) 0.5 ML SYRINGE IM ONE (10:00)
[2020-12-11] MEDS ORDERED: NALOXONE 0.4 MG/ML VIAL IV PRN (10:53)
[2020-12-11] MEDS ORDERED: HYDROmorphone PCA 30 MG/30 ML SYRINGE IV SCH (12:00)
[2020-12-11] MEDS ORDERED: ONDANSETRON 4 MG/2 ML VIAL IV PRN (13:39)
[2020-12-11 19:09] LABS: Hematocrit 24.7 VOL% (35.7-47.0)
[2020-12-11 19:11] LABS: Hemoglobin 8.2 GM/DL (12.0-16.0)
[2020-12-11] MEDS ORDERED: cefTRIAXone 1,000 MG in SODIUM CHLORIDE 0.9% 100 ML IV SCH (21:00)
[2020-12-12 05:04] LABS: Basophils # 0.1 10*3/uL (0.0-0.2); Basophils % 0.5 % (0.0-0.8); Eosinophils # 0.3 10*3/uL (0.0-0.87); Eosinophils % 2.2 % (0.00-10.9); Hematocrit 25.2 VOL% (35.7-47.0); Hemoglobin 8.5 GM/DL (12.0-16.0); Immature Granulocytes % 0.5 %; Immature Granulocytes Absolute 0.06 #; Lymphocytes # 2.2 10*3/uL (1.4-4.0); Lymphocytes % 17.3 % (21.3-54.2); Mean Corpuscular HGB Conc 33.7 GM/DL (32-36); Mean Corpuscular Volume 74.1 FL (87-102); Mean Platelet Volume 10.5 FL (9.6-12.0); Monocytes % 8.9 % (1.7-12.7); NRBC # 0.04 10*3/uL; Neutrophils % 70.6 % (38.7-73.9); Platelet Count 395 T/CUMM (130-400); Red Cell Distribution Width 18.7 % (9.3-17.3); White Blood Count 12.6 T/CUMM (4-12)
[2020-12-12 05:24] LABS: Hypochromasia 1+; Microcytosis 1+; Platelet Estimate Adequate
[2020-12-12 05:57] LABS: Calcium 8.9 MG/DL (8.5-10.1); Osmolality,Calculated 278.3 MOS/KG (273-304); Potassium 4.3 MMOL/L (3.5-5.1)
[2020-12-12] MEDS: POTASSIUM CHLORIDE INJ 30 MEQ in SODIUM CHLORIDE 0.9% 1,000 ML IV SCH (06:08)
[2020-12-12 07:56] VITALS: BP 91/44
[2020-12-12] MEDS ORDERED: HYDROmorphone PCA 30 MG/30 ML SYRINGE IV SCH (12:00)
== END 2020-12-12 08:42 | disposition home or self-care (01) | DRG 812 ==
LOC: N.ED 01:16 → N.EDINP 05:29 → N.5E 06:02
PROVIDERS: ADMIT Internal Medicine; ATTEND Internal Medicine